=== PATIENT | male | born 1990 | race African-American/Black ===

== ENCOUNTER 2020-10-21 05:32 | Emergency (ER) | payer MEDICAID, OTHER, SELFPAY ==
[~2020-10-21] VITALS: Ht 170.2 cm; Wt 72.7 kg
[2020-10-21] MEDS ORDERED: ACETAMINOPHEN 500 MG TAB PO ONE (06:15)
[2020-10-21 06:40] LABS: BASO % 0.2 % (0.0-1.0); EOS # 0.1 10^3/uL (0.0-0.5); EOS % 0.7 % (0.0-3.0); HEMOGLOBIN 14.2 g/dl (13.5-17.5); LYMPH # 2.2 10^3/uL (1.5-5.0); LYMPH % 16.9 % (24.0-44.0); MEAN CORPUSCULAR HEMOGLOBIN 26.2 pg (27.0-33.0); MEAN CORPUSCULAR HGB CONC 32.3 g/dl (32.0-36.5); MEAN CORPUSCULAR VOLUME 81.3 fl (80.0-96.0); MONO # 0.8 10^3/uL (0.0-0.8); MONO % 5.8 % (0.0-5.0); NEUTROPHILS % 76.2 % (36.0-66.0); PLATELET COUNT, AUTOMATED 281 10^3/uL (150-450); RED BLOOD COUNT 5.41 10^6/uL (4.30-6.10); WHITE BLOOD COUNT 13.1 10^3/uL (4.0-10.0)
[2020-10-21 06:59] LABS: BLOOD UREA NITROGEN 14 MG/DL (7-18); CALCIUM LEVEL 10.1 MG/DL (8.5-10.1); CARBON DIOXIDE LEVEL 27 MEQ/L (21-32); CHLORIDE LEVEL 107 MEQ/L (98-107); CREATININE FOR GFR 1.04 MG/DL (0.70-1.30); GLOMERULAR FILTRATION RATE > 60.0 (>60); GLUCOSE, FASTING 96 MG/DL (70-100); POTASSIUM SERUM 3.8 MEQ/L (3.5-5.1); SODIUM LEVEL 138 MEQ/L (136-145); URIC ACID 5.5 MG/DL (3.5-7.2)
[2020-10-21 07:23] VITALS: BP 152/86
--- NOTE | 2020-10-21 07:34 | REPVR ---
PROCEDURE INFORMATION: Exam: XR Right Foot Complete Exam date and time: 10/21/2020 6:50 AM Age: 30 years old Clinical indication: Pain; Foot; Right; Additional info: R foot pain/swelling TECHNIQUE: Imaging protocol: XR Right foot. Views: 3 or more views. COMPARISON: No relevant prior studies available. FINDINGS: Bones/joints: There is no evidence of acute fracture or dislocation. Joint spaces are preserved. Alignment appears normal. Soft tissues: The soft tissues appear mildly edematous diffusely. IMPRESSION: Mild soft tissue edema. No acute bony abnormality identified. Electronically signed by: Rosie Heath On 10/21/2020 07:34:34 AM
[2020-10-21 07:36] LABS: ERYTHROCYTE SEDIMENTATION RATE 2 mm/hr (0-15)
[2020-10-21] MEDS ORDERED: KEFL500C17 PO (07:56)
== END 2020-10-21 08:03 | disposition home or self-care (01) ==
LOC: M ED 05:32
DX: L03.115 Cellulitis of right lower limb (principal); M79.89 Other specified soft tissue disorders

== ENCOUNTER → 2022-02-09 | Outpatient (REF) ==
[~2022-02-09] MED LIST: KEFL500C17 PO
[2022-02-10 05:07] LABS: HERPES ZOSTER, VARICELLA IgG 2994 index (Immune >165); RUBEOLA IgG ANTIBODY >300.0 AU/mL (Immune >16.4)
== END ==
LOC: M LAB 11:12
PROVIDERS: ATTEND Nurse Practitioner Adult Health
DX: Z00.00 Encounter for general adult medical examination without abnormal findings (principal)

== ENCOUNTER 2024-12-19 07:18 | Emergency (ER) | payer OTHER ==
[~2024-12-19] VITALS: Ht 170.2 cm; Wt 78.0 kg
[2024-12-19 09:28] VITALS: BP 176/104; TEMP 98.1; O2SAT 100
== END 2024-12-19 09:32 | disposition home or self-care (01) ==
LOC: M ED 07:18
DX: J09.X2 Influenza due to identified novel influenza A virus with other respiratory manifestations (principal)